=== PATIENT | female | born 1995 | race African-American/Black ===

== ENCOUNTER 2022-11-02 18:01 | Emergency (ER) | payer OTHER, SELFPAY ==
[2022-11-02] VITALS (22 sets, daily range): BP systolic 111–135; BP diastolic 69–83; PULSE 99–122; RESP 16–23; TEMP 37.6–38.8; O2SAT 97–100
--- NOTE | ~2022-11-02 | CT_ITS ---
Non-contrast Head CT History: Headache Technique: Axial non-contrast imaging of the brain was performed. Dose reduction technique was used on this scan by utilizing automated exposure control and iterative reconstruction technique. The dose -length product (DLP) was 605.33 mGy-cm. Findings: There is no evidence of intracranial hemorrhage, mass lesion, or acute infarct. Brain par enchyma appears normal. The ventricles and subarachnoid spaces are normal in size. The calvarium ap pears normal. The visualized paranasal sinuses and mastoid air cells are clear. Impression: No significant abnormality seen. Reviewed, dictated and finalized at location . Impression: No significant abnormality seen.
--- NOTE | ~2022-11-02 | XR_ITS ---
Portable chest x-ray Comparison: None Clinical History: Fever Findings: Lungs are clear, without focal consolidation or pleural effusion. Cardiomediastinal silho uette is unremarkable. Bones and soft tissues are unremarkable. Impression: Clear lungs. Reviewed, dictated and finalized at location M. Impression: Clear lungs.
--- NOTE | 2022-11-02 18:07 | ECG_ITS ---
Measurements Intervals [place] Rate: 110 P: 55 MD: 149 QRS: 52 QRSD: 76 T: 30 QT: 295 QTc: 399 Interpretive Statements SINUS TACHYCARDIA NONSPECIFIC T-WAVE ABNORMALITY ABNORMAL RHYTHM ECG NO PREVIOUS ECG AVAILABLE FOR COMPARISON Electronically Signed On 11-03-2022 8:30:05 CDT by Reyna Perez M.D.
--- NOTE | 2022-11-02 18:45 | ED.HA ---
HPI - Headache General Chief Complaint: Headache <ALKA Le Last Filed: 11/02/22 23:04> Stated Complaint: headache <ALKA Le Last Filed: 11/02/22 23:04> Time Seen by Provider: 11/02/22 18:23 <Rosamaria Cunningham PA-C - Last Filed: 11/02/22 23:04> History of Present Illness HPI Narrative: 26 y/o F reports for evaluation for a frontal headache, body aches, chills and feeling hot x2 days. She reports subjective fevers, however never took her temperature. States she woke up last night and a sweat. She is also reporting a sore throat and right ear pain. She does report that she was treated 2 weeks ago for a UTI from urgent care, she finished her dose of antibiotics last week and was treated for 7 days. She is unsure of the name of the antibiotic. Patient is reporting nausea, no vomiting or diarrhea. She denies neck pain, back pain, chest pain or shortness of breath, cough or congestion, abdominal pain, dysuria or hematuria, vaginal discharge or concern for STDs, rashes. No vision changes, focal numbness or weakness. <Rosamaria Cunningham PA-C - Last Filed: 11/02/22 23:04> Related Data Allergies/Adverse Reactions: Allergies Allergy/AdvReac Type Severity Reaction Status Date / Time No Known Allergies Allergy Verified 11/02/22 18:05 <Rosamaria Cunningham PA-C - Last Filed: 11/02/22 23:04> Review of Systems Review of Systems: CONSTITUTIONAL: See HPI EYES: Denies visual changes, redness, or discharge. ENT: See HPI CARDIOVASCULAR: Denies chest pain, palpitations, or edema. RESPIRATORY: Denies cough or dyspnea. GASTROINTESTINAL: Denies abdominal pain, vomiting, or diarrhea. GENITOURINARY: Denies dysuria or hematuria. SKIN: Denies rash or itching. MUSCULOSKELETAL: Denies back pain, joint pain, or myalgia. NEUROLOGIC: See HPI PSYCHIATRIC: Denies anxiety or depression. <ALKA Le Last Filed: 11/02/22 23:04> Exam Narrative: GENERAL: Well-appearing, in no acute distress. HEAD: Normocephalic, atraumatic EYES: PERRLA, EOMI ENT: Nares clear. Mucous membranes moist. Posterior pharynx erythematous without tonsillar hypertrophy, no uvular deviation, no exudates. Bilateral TMs are pereira nonbulging. No mastoid tenderness. No pain with movement of auricle. NECK: Supple. No nuchal rigidity. CHEST: No respiratory distress. Clear to auscultation, no adventitious breath sounds. HEART: Regular rate and rhythm. No murmur heard. Normal peripheral pulses. ABDOMEN: Soft, nontender, normal active bowel sounds. EXTREMITIES: Normal range of motion. No edema. SKIN: Warm, dry, no rash. NEURO: No focal deficits. Alert and oriented x3. Cranial nerves II through XII grossly intact. Patient moving all extremities spontaneously. Ambulatory without difficulty. PSYCH: Normal mood and affect. 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 <Sharon Dietrich MD - Last Filed: 11/02/22 23:54> Vital Signs Vital signs: Vital Signs Temperature 102 F H 11/02/22 18:04 Pulse Rate 117 H 11/02/22 18:04 Respiratory Rate 20 11/02/22 18:04 Blood Pressure 135/81 11/02/22 18:04 Pulse Oximetry 100 11/02/22 18:04 Temperature 99.7 F H 11/02/22 22:57 Pulse Rate 105 H 11/02/22 21:15 Respiratory Rate 20 11/02/22 21:15 Blood Pressure 124/81 11/02/22 21:01 Pulse Oximetry 100 11/02/22 21:15 <Rosamaria Cunningham PA-C - Last Filed: 11/02/22 23:04> Vital Signs Temperature 102 F H 11/02/22 18:04 Pulse Rate 117 H 11/02/22 18:04 Respiratory Rate 20 11/02/22 18:04 Blood Pressure 135/81 11/02/22 18:04 Pulse Oximetry 100 11/02/22 18:04 Temperature 99.7 F H 11/02/22 22:57 Pulse Rate 105 H 11/02/22 21:15 Respiratory Rate 20 11/02/22 21:15 Blood Pressure 124/81 11/02/22 21
[2022-11-02] MEDS: SODIUM CHLORIDE 0.9% IV 1,000 ML 999 ML IV CONT ×2 (18:51→20:17)
[2022-11-02] MEDS: PROCHLORPERAZINE EDISYLATE 10 MG/2 ML VIAL IV PUSH (18:52)
[2022-11-02] MEDS: diphenhydrAMINE HCl INJ 50 MG/ML VIAL 25 MG IV PUSH (18:52)
[2022-11-02] MEDS: KETOROLAC 30 MG/ML VIAL (*BKC) IV PUSH (18:52)
[2022-11-02] MEDS: ONDANSETRON INJ 4 MG/2 ML VIAL IV PUSH (18:52)
[2022-11-02 19:14] LABS: Basophils Percent Auto 0.4 % (0.2-1.2); Hematocrit 27.4 % (37.0-47.0); Hemoglobin 8.7 g/dL (12.0-15.0); Immature Granulocyte Absolute 0.03 K/mm3 (0.00-0.031); Immature Granulocyte Percent A 0.3 % (0-0.5); Lymphocytes Absolute Auto 1.02 K/mm3 (0.9-3.2); Lymphocytes Percent Auto 10.7 % (18.3-44.2); Mean Corpuscular HGB Conc 31.8 g/dl (32-36); Mean Corpuscular Hemoglobin 20.2 pg (26-34); Mean Corpuscular Volume 63.7 fl (80-100); Monocytes Absolute Auto 0.6 K/mm3 (0.1-0.6); Monocytes Percent Auto 5.9 % (2.6-8.5); Neutrophils Absolute Auto 7.9 K/mm3 (1.3-6.7); Neutrophils Percent Auto 82.7 % (45.5-73.1); Platelet Count Result 329 k/mm3 (150-375); Red Cell Distribution Width 15.7 % (11.5-14.5); White Blood Count 9.5 K/mm3 (4.5-10.0)
--- NOTE | 2022-11-02 19:18 | PC.NURSE ---
Report received from THERESA Hopson. Assumed care of patient at this time.
[2022-11-02 19:25] LABS: Anion Gap 8 mmol/L (8-16); Blood Urea Nitrogen 15 mg/dL (7-17); Calcium 8.8 mg/dL (8.4-10.2); Carbon Dioxide 27 mmol/L (22-30); Chloride 100 mmol/L (98-107); Estimated Glomerular Filt Rate > 60; Glucose 86 mg/dL (65-110); Potassium 3.1 mmol/L (3.4-5.0); Sodium 135 mmol/L (137-145)
[2022-11-02 19:40] LABS: Strep Group A RT-PCR NOT DETECTED (Negative)
[2022-11-02 19:46] LABS: Anisocytosis 2+ (NORMAL); Hypochromasia 1+ (NORMAL); Platelet Estimate Adequate (Adequate); Schistocytes None Seen (NORMAL)
[2022-11-02 19:51] LABS: Influenza A QL RT-PCR Negative (Negative); Influenza B QL RT-PCR Negative (Negative); SARS-CoV-2 RNA PCR Negative (Negative)
[2022-11-02] MEDS: POTASSIUM CHLORIDE 20 MEQ PACKET (FOR LIQUID) 40 MEQ PO (20:18)
--- NOTE | 2022-11-02 20:29 | PC.NURSE ---
Patient taken to CT via stretcher at this time.
[2022-11-02] MEDS: ACETAMINOPHEN 500 MG TABLET 1000 MG PO (21:36)
[2022-11-02 21:55] LABS: Appearance Urine Clear (Clear); Bacteria Urine None Seen /hpf; Bilirubin Urine Negative (Negative); Blood Urine Negative (Negative); Color Urine Yellow (Yellow); Glucose Urine UA Negative (Negative); Ketones Urine 2+ mg/dL (Negative); Leukocyte Esterase Ur Trace LEU/UL (Negative); Nitrate Urine Negative (Negative); Non Pathogenic Casts 0-2; Protein Urine Negative (Negative); RBC Urine 0-2 /hpf (0-2); Specific Grav Ur 1.019 (1.001-1.035); Squamous Epithelial Cell Urine None seen /hpf (Few); WBC Urine 0-5 /hpf
[2022-11-02 22:09] LABS: Add Urine Microscopic? YES
[2022-11-02] MEDS: POTASSIUM CHLORIDE 20 MEQ ER TABLET 40 MEQ PO (22:56)
== END 2022-11-02 23:17 | disposition home or self-care (01) ==
PROVIDERS: Emergency Provider Physician Assistant
DX: G44.209 Tension-type headache, unspecified, not intractable (principal); Z20.822 Contact with and (suspected) exposure to COVID-19; R00.0 Tachycardia, unspecified; R94.31 Abnormal electrocardiogram [ECG] [EKG]
CPT/HCPCS: 36415; 70450; 71045; 80048; 81001; 81025; 85025; 87636; 87651; 93005; 96361; 96374; 96375; 99284; A9270; J0780; J1200; J1885; J2405; J7030